=== PATIENT | male | born 1940 | race Caucasian/White ===

== ENCOUNTER 2019-12-26 05:24 | Day surgery (SDC) | payer MEDICARE, OTHER ==
[2019-12-26] VITALS (11 sets, daily range): BP systolic 107–134; BP diastolic 43–61
[~2019-12-26] VITALS: Ht 175.3 cm; Wt 80.5 kg
[2019-12-26] MEDS ORDERED: LORazepam 0.5 MG tablet PO PRN (06:00)
[2019-12-26] MEDS ORDERED: diphenhydrAMINE 25mg capsule PO PRN (06:00)
[2019-12-26] MEDS ORDERED: LIDOcaine/PRILOcaine 5gm cream TP ONE (06:00)
[2019-12-26] MEDS ORDERED: sodium bicarbonate (8.4%) inj. 150 ML in dextrose 5%-water 1,000 ML IV ONE (06:00)
[2019-12-26] MEDS ORDERED: normal saline 1,000 ML IV SCH (06:20)
[2019-12-26 06:33] LABS: BASOPHILS % (AUTO) 0.4 % (0-1); EOSINOPHILS % (AUTO) 0.9 % (0-6); HEMATOCRIT 43.2 % (42.0-52.0); HEMOGLOBIN 14.8 g/dl (14.0-17.9); LYMPHOCYTES # (AUTO) 1.6 X10'3 (1.1-4.8); LYMPHOCYTES % (AUTO) 30.6 % (21-51); MEAN CORPUSCULAR HEMOGLOBIN 30.1 PG (27.0-31.0); MEAN CORPUSCULAR HGB CONC 34.3 g/dL (33.0-36.5); MEAN CORPUSCULAR VOLUME 87.9 FL (78-98); MEAN PLATELET VOLUME 7.5 FL (7.4-10.4); MONOCYTES # (AUTO) 0.5 X10'3 (0-0.9); MONOCYTES % (AUTO) 9.1 % (2-12); PLATELET COUNT 246 X10'3 (140-440); RED BLOOD COUNT 4.91 X10'6 (4.70-6.10); RED CELL DISTRIBUTION WIDTH 13.6 % (11.5-14.5); WHITE BLOOD COUNT 5.2 X10'3 (4.5-11.0)
[2019-12-26 06:42] LABS: ALBUMIN 3.7 G/DL (3.4-5.0); ANION GAP 6 (8-16); BLOOD UREA NITROGEN 14 MG/DL (7-18); BUN/CREATININE RATIO 13.7 (5.4-32.0); CALCIUM 8.5 MG/DL (8.5-10.1); CHLORIDE 104 MMOL/L (99-107); CREATININE 1.02 MG/DL (0.60-1.10); GLUCOSE 116 MG/DL (70-104); POTASSIUM 3.9 MMOL/L (3.5-5.1); SODIUM 137 MMOL/L (135-145); TOTAL CARBON DIOXIDE 26.6 MMOL/L (24-32); eGFR 70 ML/MIN
[2019-12-26] MEDS ORDERED: CHOL100025 PO (06:49)
[2019-12-26] MEDS ORDERED: OMEG1CAP13 PO (06:49)
[2019-12-26] MEDS ORDERED: RIVA20TA PO (06:49)
[2019-12-26] MEDS ORDERED: CYAN100T47 PO (06:49)
[2019-12-26] MEDS ORDERED: LISI10TA4 PO (06:49)
[2019-12-26] MEDS ORDERED: SIMV10TA98 PO (06:49)
[2019-12-26] MEDS ORDERED: heparin 1,000unit/ml 10ml vial 10 ML ONE (08:02)
[2019-12-26] MEDS ORDERED: fentaNYL/PF 50MCG/1 ML 2ML syringe ONE (08:02)
[2019-12-26] MEDS ORDERED: LIDOcaine 1% (10mg/ml)w/preservative injection 20ml MDV ONE (08:02)
[2019-12-26] MEDS ORDERED: verapamil 2.5 mg/ml inj IV ONE (08:02)
[2019-12-26] MEDS ORDERED: midazolam 2 mg/2 ml injection ONE (08:02)
[2019-12-26] MEDS ORDERED: nitroGLYCERIN-Tridil 50MG/D5W 250 ML IV ONE (08:02)
[2019-12-26] MEDS ORDERED: iohexol 350 MG/ML 50ML vial IV ONE (08:02)
[2019-12-26] MEDS ORDERED: iohexol 350MG/ML 100ml bottle IV ONE ×2 (08:03→08:36)
[2019-12-26] MEDS ORDERED: heparin 25,000 UNIT/250ml bag 250 ML IV ONE (08:36)
== END 2019-12-26 14:14 | disposition home or self-care (01) ==
LOC: SSTAY O 05:24
PROVIDERS: ATTEND Internal Medicine Cardiovascular Disease
DX: R94.39 Abnormal result of other cardiovascular function study (principal); I25.10 Atherosclerotic heart disease of native coronary artery without angina pectoris; I25.82 Chronic total occlusion of coronary artery; I10 Essential (primary) hypertension; E78.49 Other hyperlipidemia; I25.2 Old myocardial infarction; I48.91 Unspecified atrial fibrillation; Z95.5 Presence of coronary angioplasty implant and graft; Z85.46 Personal history of malignant neoplasm of prostate; Z98.890 Other specified postprocedural states; Z87.891 Personal history of nicotine dependence; Z82.49 Family history of ischemic heart disease and other diseases of the circulatory system
CPT/HCPCS: 36415; 80048; 85025; 85610; 93005; 93458; 99152; 99153; C1769; C1894; J1644; J2001; J2250; J3010; J7030; Q0163; Q9967; A4620; A5120; J3490

== ENCOUNTER 2020-01-02 07:39 | Day surgery (SDC) | payer MEDICARE, OTHER ==
[2020-01-01 12:22] LABS: BASOPHILS % (AUTO) 0.5 % (0-1); EOSINOPHILS # (AUTO) 0.1 X10'3 (0-0.9); EOSINOPHILS % (AUTO) 1.4 % (0-6); HEMATOCRIT 45.2 % (42.0-52.0); HEMOGLOBIN 15.1 g/dl (14.0-17.9); LYMPHOCYTES # (AUTO) 1.9 X10'3 (1.1-4.8); LYMPHOCYTES % (AUTO) 31.5 % (21-51); MEAN CORPUSCULAR HEMOGLOBIN 29.9 PG (27.0-31.0); MEAN CORPUSCULAR HGB CONC 33.5 g/dL (33.0-36.5); MEAN CORPUSCULAR VOLUME 89.2 FL (78-98); MEAN PLATELET VOLUME 7.8 FL (7.4-10.4); MONOCYTES # (AUTO) 0.6 X10'3 (0-0.9); MONOCYTES % (AUTO) 9.8 % (2-12); NEUTROPHILS # (AUTO) 3.5 X10'3 (1.8-7.7); NEUTROPHILS % (AUTO) 56.8 % (42-75); PLATELET COUNT 273 X10'3 (140-440); RED BLOOD COUNT 5.06 X10'6 (4.70-6.10); RED CELL DISTRIBUTION WIDTH 13.7 % (11.5-14.5); WHITE BLOOD COUNT 6.1 X10'3 (4.5-11.0)
[2020-01-01 12:32] LABS: ALBUMIN 3.9 G/DL (3.4-5.0); ANION GAP 5 (8-16); BLOOD UREA NITROGEN 16 MG/DL (7-18); CALCIUM 9.1 MG/DL (8.5-10.1); CHLORIDE 104 MMOL/L (99-107); CREATININE 0.94 MG/DL (0.60-1.10); GLUCOSE 95 MG/DL (70-104); SODIUM 138 MMOL/L (135-145); TOTAL CARBON DIOXIDE 28.7 MMOL/L (24-32); eGFR 77 ML/MIN
[2020-01-01 12:35] LABS: PARTIAL THROMBOPLASTIN TIME 27 SECONDS (22-32)
[~2020-01-02] VITALS: Ht 175.3 cm; Wt 81.1 kg
[2020-01-02] VITALS (11 sets, daily range): BP systolic 77–155; BP diastolic 48–69
[~2020-01-02 07:39] MED LIST: CHOL100025 PO; CYAN100T47 PO; LISI10TA4 PO; OMEG1CAP13 PO; RIVA20TA PO; SIMV10TA98 PO
[2020-01-02] MEDS ORDERED: LIDOcaine/PRILOcaine 5gm cream TP ONE (07:55)
[2020-01-02] MEDS ORDERED: LORazepam 0.5 MG tablet PO PRN (07:55)
[2020-01-02] MEDS ORDERED: diphenhydrAMINE 25mg capsule PO PRN (07:55)
[2020-01-02] MEDS ORDERED: sodium bicarbonate (8.4%) inj. 150 ML in dextrose 5%-water 1,000 ML IV ONE (07:55)
[2020-01-02] MEDS ORDERED: SIMV-42 PO (08:27)
[2020-01-02] MEDS ORDERED: LIDOcaine 1% (10mg/ml)w/preservative injection 20ml MDV ONE (09:40)
[2020-01-02] MEDS ORDERED: midazolam 2 mg/2 ml injection ONE (09:40)
[2020-01-02] MEDS ORDERED: nitroGLYCERIN-Tridil 50MG/D5W 250 ML IV ONE (09:40)
[2020-01-02] MEDS ORDERED: fentaNYL/PF 50MCG/1 ML 2ML syringe ONE (09:40)
[2020-01-02] MEDS ORDERED: iohexol 350 MG/ML 50ML vial IV ONE (09:41)
[2020-01-02] MEDS ORDERED: iohexol 350MG/ML 100ml bottle IV ONE ×3 (09:41→11:35)
[2020-01-02] MEDS ORDERED: heparin 1,000unit/ml 10ml vial 10 ML ONE (09:41)
[2020-01-02] MEDS ORDERED: verapamil 2.5 mg/ml inj IV ONE (10:08)
[2020-01-02] MEDS ORDERED: heparin 25,000 UNIT/250ml bag 250 ML IV ONE (10:20)
[2020-01-02] MEDS ORDERED: atropine 0.1mg/ml 10ml syringe ONE (10:38)
[2020-01-02] MEDS ORDERED: normal saline 1,000 ML IV SCH (11:20)
[2020-01-02] MEDS ORDERED: clopidogrel 300mg tablet ONE (12:25)
--- NOTE | 2020-01-02 13:15 | NUR ---
pt ambulated to bathroom, denies cp, denies sob. pt site stable. vasc band assessed as charted. pt ate 100% of lunch tray.
--- NOTE | 2020-01-02 15:13 | NUR ---
Problems reprioritized. Patient report given, questions answered & plan of care reviewed with Ruth GUPTA.
== END 2020-01-02 18:15 | disposition home or self-care (01) ==
LOC: SSTAY O 07:39
PROVIDERS: ATTEND Internal Medicine Cardiovascular Disease
DX: R94.39 Abnormal result of other cardiovascular function study (principal); I25.10 Atherosclerotic heart disease of native coronary artery without angina pectoris; I25.82 Chronic total occlusion of coronary artery; I10 Essential (primary) hypertension; E78.49 Other hyperlipidemia; I48.91 Unspecified atrial fibrillation; I25.2 Old myocardial infarction; Z79.899 Other long term (current) drug therapy; Z79.01 Long term (current) use of anticoagulants; Z95.5 Presence of coronary angioplasty implant and graft; Z85.46 Personal history of malignant neoplasm of prostate; Z98.890 Other specified postprocedural states; Z82.49 Family history of ischemic heart disease and other diseases of the circulatory system; Z80.9 Family history of malignant neoplasm, unspecified; Z87.891 Personal history of nicotine dependence
CPT/HCPCS: 36415; 80048; 85025; 85347; 85610; 85730; 93005; 99152; 99153; C1725; C1751; C1769; C1874; C1892; C1894; C9600; J0461; J1644; J2001; J2250; J3010; J7030; Q0163; Q9967; A4620; J3490

== ENCOUNTER 2023-08-17 06:56 | Day surgery (SDC) | payer MEDICARE, OTHER ==
[2023-08-15 11:58] LABS: BASOPHILS % (AUTO) 0.6 % (0-1); EOSINOPHILS % (AUTO) 0.8 % (0-6); HEMATOCRIT 44.2 % (42.0-52.0); HEMOGLOBIN 14.8 g/dl (14.0-17.9); LYMPHOCYTES # (AUTO) 1.8 X10'3 (1.1-4.8); LYMPHOCYTES % (AUTO) 31.2 % (21-51); MEAN CORPUSCULAR HEMOGLOBIN 30.6 PG (27.0-31.0); MEAN CORPUSCULAR HGB CONC 33.5 g/dL (33.0-36.5); MEAN CORPUSCULAR VOLUME 91.2 FL (78-98); MEAN PLATELET VOLUME 7.4 FL (7.4-10.4); MONOCYTES # (AUTO) 0.6 X10'3 (0-0.9); MONOCYTES % (AUTO) 9.6 % (2-12); NEUTROPHILS # (AUTO) 3.4 X10'3 (1.8-7.7); NEUTROPHILS % (AUTO) 57.8 % (42-75); PLATELET COUNT 256 X10'3 (140-440); RED BLOOD COUNT 4.84 X10'6 (4.70-6.10); RED CELL DISTRIBUTION WIDTH 13.5 % (11.5-14.5); WHITE BLOOD COUNT 5.9 X10'3 (4.5-11.0)
[2023-08-15 12:18] LABS: ALBUMIN 3.8 G/DL (3.4-5.0); ANION GAP 8 (8-16); APTT 25 SECONDS (22-32); BLOOD UREA NITROGEN 15 MG/DL (7-18); BUN/CREATININE RATIO 18.1 (10.0-20.0); CALCIUM 8.8 MG/DL (8.5-10.1); CHLORIDE 106 MMOL/L (99-107); CREATININE 0.83 MG/DL (0.60-1.10); GLUCOSE 81 MG/DL (70-104); PROTHROMBIN TIME 10.3 SECONDS (9.0-12.0); SODIUM 140 MMOL/L (135-145); eGFR 89 ML/MIN
[2023-08-17] VITALS (13 sets, daily range): BP systolic 110–149; BP diastolic 44–68; PULSE 55–65; RESP 10–21; TEMP 97.7; O2SAT 95–99
[~2023-08-17] VITALS: Ht 175.3 cm; Wt 76.2 kg
[~2023-08-17 06:56] MED LIST changes: +LISI10TA27 PO; -LISI10TA4 PO; -OMEG1CAP13 PO; +SIMV-42 PO; -SIMV10TA98 PO
[2023-08-17] MEDS ORDERED: diphenhydrAMINE 25mg capsule PO PRN (07:15)
[2023-08-17] MEDS ORDERED: normal saline 1,000 ML IV SCH (07:15)
[2023-08-17] MEDS ORDERED: LORazepam 0.5 MG tablet PO PRN (07:15)
[2023-08-17] MEDS ORDERED: ATOR20TA66 PO (08:03)
[2023-08-17] MEDS ORDERED: CLOP75TA34 PO (08:03)
[2023-08-17] MEDS ORDERED: fish oil PO (08:03)
[2023-08-17] MEDS ORDERED: GLUC100017 (08:06)
[2023-08-17] MEDS ORDERED: nitroGLYCERIN 500mcg/5mL D5W 10 ML IV ONE (08:21)
[2023-08-17] MEDS ORDERED: heparin 1,000unit/ml 10ml vial 10 ML ONE (08:23)
[2023-08-17] MEDS ORDERED: iohexol 350 MG/ML 50ML vial IV ONE (08:23)
[2023-08-17] MEDS ORDERED: midazolam 1 mg/ML 2ml injection ONE (08:23)
[2023-08-17] MEDS ORDERED: fentaNYL/PF 50MCG/1 ML 2ML syringe ONE (08:23)
[2023-08-17] MEDS ORDERED: LIDOcaine 1% (10mg/ml) 2ml vial ONE (08:23)
[2023-08-17] MEDS ORDERED: iohexol 350MG/ML 100ml bottle IV ONE ×2 (08:23→09:54)
[2023-08-17] MEDS ORDERED: verapamil 2.5 mg/ml inj IV ONE (08:23)
[2023-08-17 10:12] LABS: ISTAT HGB ART 13.3 g/dl (14.0-17.9); ISTAT Hct ART 39 %PCV (42-52); ISTAT O2 SATURATION ARTERIAL 95 % (95-98); ISTAT SOURCE ART
[2023-08-17 10:43] LABS: ISTAT HGB MIX 13.3 g/dl (14.0-17.9); ISTAT Hct MIX 39 %PCV (42-52); ISTAT O2 SATURATION MIX VENOUS 74 % (60-80); ISTAT SOURCE VEN
== END 2023-08-17 14:45 | disposition home or self-care (01) ==
LOC: SSTAY O 06:56
PROVIDERS: ATTEND Internal Medicine Cardiovascular Disease
DX: R07.9 Chest pain, unspecified (principal); I25.10 Atherosclerotic heart disease of native coronary artery without angina pectoris; I45.10 Unspecified right bundle-branch block; I10 Essential (primary) hypertension; E78.5 Hyperlipidemia, unspecified; I48.0 Paroxysmal atrial fibrillation; I25.2 Old myocardial infarction; Z85.46 Personal history of malignant neoplasm of prostate; Z79.01 Long term (current) use of anticoagulants; Z79.899 Other long term (current) drug therapy; Z90.49 Acquired absence of other specified parts of digestive tract; Z90.89 Acquired absence of other organs; Z95.5 Presence of coronary angioplasty implant and graft; Z82.49 Family history of ischemic heart disease and other diseases of the circulatory system
CPT/HCPCS: 36415; 76937; 80048; 82803; 85014; 85025; 85610; 85730; 93005; 93460; 93571; 99152; 99153; A6258; J1644; J2250; J3010; J3490; J7030; Q9967; A6402; C1725; C1751; C1769; C1894

== ENCOUNTER 2023-08-19 09:50 | Outpatient (CLI) | payer MEDICARE, OTHER ==
[~2023-08-19] VITALS: Ht 175.3 cm; Wt 77.1 kg
[~2023-08-19 09:50] MED LIST changes: +ATOR20TA66 PO; +CLOP75TA34 PO; +GLUC100017; -SIMV-42 PO; +fish oil PO
[2023-08-19] MEDS ORDERED: albuterol 2.5 MG/3 ML nebule NEB PRN (10:30)
== END 2023-08-19 23:59 | disposition home or self-care (01) ==
LOC: RT 09:50
PROVIDERS: ATTEND Internal Medicine
DX: R06.02 Shortness of breath (principal)
CPT/HCPCS: 94010; 94727; 94729

== ENCOUNTER 2023-09-19 06:25 | Day surgery (SDC) | payer MEDICARE, OTHER ==
[2023-09-15 12:31] LABS: BASOPHILS % (AUTO) 0.3 % (0-1); EOSINOPHILS # (AUTO) 0.1 X10'3 (0-0.9); EOSINOPHILS % (AUTO) 1.1 % (0-6); HEMATOCRIT 43.5 % (42.0-52.0); HEMOGLOBIN 14.6 g/dl (14.0-17.9); LYMPHOCYTES # (AUTO) 1.9 X10'3 (1.1-4.8); LYMPHOCYTES % (AUTO) 33.5 % (21-51); MEAN CORPUSCULAR HEMOGLOBIN 30.2 PG (27.0-31.0); MEAN CORPUSCULAR HGB CONC 33.7 g/dL (33.0-36.5); MEAN CORPUSCULAR VOLUME 89.8 FL (78-98); MEAN PLATELET VOLUME 7.4 FL (7.4-10.4); MONOCYTES # (AUTO) 0.6 X10'3 (0-0.9); MONOCYTES % (AUTO) 9.9 % (2-12); NEUTROPHILS # (AUTO) 3.2 X10'3 (1.8-7.7); NEUTROPHILS % (AUTO) 55.2 % (42-75); PLATELET COUNT 261 X10'3 (140-440); RED BLOOD COUNT 4.84 X10'6 (4.70-6.10); RED CELL DISTRIBUTION WIDTH 13.5 % (11.5-14.5); WHITE BLOOD COUNT 5.8 X10'3 (4.5-11.0)
[2023-09-15 12:36] LABS: ALBUMIN 3.7 G/DL (3.4-5.0); ANION GAP 10 (8-16); BLOOD UREA NITROGEN 19 MG/DL (7-18); BUN/CREATININE RATIO 22.4 (10.0-20.0); CALCIUM 8.8 MG/DL (8.5-10.1); CHLORIDE 104 MMOL/L (99-107); CREATININE 0.85 MG/DL (0.60-1.10); GLUCOSE 97 MG/DL (70-104); POTASSIUM 3.9 MMOL/L (3.5-5.1); SODIUM 138 MMOL/L (135-145); TOTAL CARBON DIOXIDE 24.5 MMOL/L (24-32); eGFR 86 ML/MIN
[2023-09-15 12:40] LABS: APTT 26 SECONDS (22-32); PROTHROMBIN TIME 10.3 SECONDS (9.0-12.0)
[~2023-09-19] VITALS: Ht 175.3 cm; Wt 76.7 kg
[2023-09-19] VITALS (14 sets, daily range): BP systolic 102–167; BP diastolic 37–58; PULSE 51–64; RESP 9–19; TEMP 97.5; O2SAT 97–99
[2023-09-19] MEDS: diphenhydrAMINE 25mg capsule PO PRN (07:10)
[2023-09-19] MEDS: LORazepam 0.5 MG tablet PO PRN (07:10)
[2023-09-19] MEDS: normal saline 1,000 ML IV SCH (07:11)
[2023-09-19] MEDS ORDERED: verapamil 2.5 mg/ml inj IV ONE (07:16)
[2023-09-19] MEDS ORDERED: midazolam 1 mg/ML 2ml injection ONE (07:16)
[2023-09-19] MEDS ORDERED: LIDOcaine 1% (10mg/ml) 2ml vial ONE ×3 (07:16→07:40)
[2023-09-19] MEDS ORDERED: fentaNYL/PF 50MCG/1 ML 2ML syringe ONE (07:17)
[2023-09-19] MEDS ORDERED: nitroGLYCERIN 500mcg/5mL D5W 5 ML IV ONE ×3 (07:17→09:18)
[2023-09-19] MEDS ORDERED: heparin 1,000unit/ml 10ml vial 10 ML ONE (07:17)
[2023-09-19] MEDS ORDERED: iohexol 350MG/ML 100ml bottle IV ONE (07:18)
[2023-09-19] MEDS ORDERED: iohexol 350 MG/ML 50ML vial IV ONE ×3 (07:18→09:34)
[2023-09-19] MEDS ORDERED: heparin 25,000 UNIT/250ml bag 250 ML IV ONE (07:54)
[2023-09-19] MEDS ORDERED: atropine 0.1mg/ml 10ml syringe ONE (08:47)
[2023-09-19] MEDS ORDERED: clopidogrel 300mg tablet ONE (09:43)
[2023-09-19] MEDS ORDERED: clopidogrel 300mg tablet PO ONE (10:25)
[2023-09-20] MEDS ORDERED: clopidogrel 75mg tablet PO SCH (08:00)
== END 2023-09-19 16:45 | disposition home or self-care (01) ==
LOC: SSTAY O 06:25
PROVIDERS: ATTEND Internal Medicine Cardiovascular Disease
DX: I25.119 Atherosclerotic heart disease of native coronary artery with unspecified angina pectoris (principal); I45.10 Unspecified right bundle-branch block; I49.1 Atrial premature depolarization; I25.2 Old myocardial infarction; I10 Essential (primary) hypertension; E78.5 Hyperlipidemia, unspecified; I48.0 Paroxysmal atrial fibrillation; Z85.46 Personal history of malignant neoplasm of prostate; Z79.02 Long term (current) use of antithrombotics/antiplatelets; Z79.899 Other long term (current) drug therapy; Z90.89 Acquired absence of other organs; Z98.890 Other specified postprocedural states; Z80.9 Family history of malignant neoplasm, unspecified; Z82.49 Family history of ischemic heart disease and other diseases of the circulatory system
CPT/HCPCS: 36415; 76937; 80048; 85025; 85347; 85610; 85730; 92972; 93005; 99152; 99153; A6258; A6402; C1725; C1751; C1761; C1769; C1874; C1892; C1894; C9600; J0461; J1644; J2001; J2250; J3010; J3490; J7030; Q0163; Q9967